=== PATIENT | female | born 1995 | race Native Hawaiian/Other Pacific Islander ===

== ENCOUNTER 2020-10-31 20:29 | Emergency (ER) | payer OTHER ==
[~2020-10-31] VITALS: Ht 160 cm; Wt 59.0 kg
[2020-10-31 21:17] VITALS: BP 128/75; TEMP 97.9
== END 2020-10-31 21:17 | disposition home or self-care (01) ==
LOC: ED 20:29
DX: N39.0 Urinary tract infection, site not specified (principal)
CPT/HCPCS: 81000; 87077; 87086; 87088; 87185; 87186; 99282